=== PATIENT | female | born 1955 | race Caucasian/White ===

== ENCOUNTER 2016-10-07 15:58 | Outpatient (CLI) | payer OTHER ==
[2014-09-11 10:13] VITALS: BP 107/91
--- NOTE | 2016-10-07 20:33 | Diagnostic Imaging Report ---
MARIKA RUIZ~ [facility] [address] [facility].[address] [address] ~ ~ ~ ~ Report Submission Date: Oct 07, 2016 4:26:45 PM CDT Patient ~ Study Name: SIM VICENTE ~ Date: Oct 07, 2016 4:09:18 PM CDT ~ Modality Type: CR Gender: F ~ Description: CHEST : 55 ~ Institution: [facility] Physician: MARIKA RUIZ ~ ~ ~ ~ Chest, 2 view History: COUGH, WHEEZING, FEVER Findings: The heart size is enlarged. The lungs are clear but mildly hyperinflated. There is no pleural effusion or pneumothorax identified. The osseous structures are normal. Impression: 1. No acute pulmonary disease. 2. Mild cardiomegaly. 3. Lung hyperinflation. ~ Electronically signed on Oct 07, 2016 4:26:45 PM CDT by: Andry GARCIA
== END 2016-10-07 16:00 ==
LOC: RAD 15:58
PROVIDERS: ATTEND Physician Assistant
DX: R05 Cough (principal); R06.02 Shortness of breath
CPT/HCPCS: 71020

== ENCOUNTER 2017-01-05 14:59 | Outpatient (CLI) | payer OTHER ==
[2014-09-11 10:13] VITALS: BP 107/91
[2017-01-05 15:31] LABS: BASOPHILS % 0.7 (0.0-1.5); EOSINOPHILS % 1.6 % (0.0-6.8); MEAN CORPUSCULAR HEMOGLOBIN 29.3 pg (28.0-34.0); MEAN CORPUSCULAR VOLUME 87.3 fl (80.0-100.0); MONOCYTES % 4.9 % (0.0-11.0); NEUTROPHILS # 8.1 # k/uL (1.4-7.7)
[2017-01-05 15:47] LABS: eGFR (African) > 60; eGFR (Non-African) > 60
== END 2017-01-05 15:00 ==
LOC: RT 14:59
PROVIDERS: ATTEND Family Medicine
DX: I49.9 Cardiac arrhythmia, unspecified (principal); R73.9 Hyperglycemia, unspecified
CPT/HCPCS: 36415; 80053; 83036; 84443; 85025

== ENCOUNTER 2017-01-18 14:03 | Outpatient (CLI) | payer OTHER ==
[2014-09-11 10:13] VITALS: BP 107/91
== END 2017-01-18 14:04 ==
LOC: CARD 14:03
PROVIDERS: ATTEND Internal Medicine Cardiovascular Disease
DX: I48.91 Unspecified atrial fibrillation (principal); I10 Essential (primary) hypertension; E11.9 Type 2 diabetes mellitus without complications; E66.9 Obesity, unspecified; G47.30 Sleep apnea, unspecified
CPT/HCPCS: G0463

== ENCOUNTER 2017-03-12 08:05 | Outpatient (CLI) | payer OTHER ==
[2014-09-11 10:13] VITALS: BP 107/91
== END 2017-03-12 11:03 ==
LOC: LAB 08:05
PROVIDERS: ATTEND Family Medicine
DX: Z51.81 Encounter for therapeutic drug level monitoring (principal)
CPT/HCPCS: 36415; 85610

== ENCOUNTER 2017-03-16 08:35 | Outpatient (CLI) | payer OTHER ==
[2014-09-11 10:13] VITALS: BP 107/91
== END 2017-03-16 08:36 ==
LOC: LAB 08:35
PROVIDERS: ATTEND Family Medicine
DX: I48.91 Unspecified atrial fibrillation (principal); Z79.01 Long term (current) use of anticoagulants
CPT/HCPCS: 36415; 85610

== ENCOUNTER 2017-03-21 08:13 | Outpatient (CLI) | payer OTHER ==
[2014-09-11 10:13] VITALS: BP 107/91
== END 2017-03-21 08:14 ==
LOC: LAB 08:13
PROVIDERS: ATTEND Family Medicine
DX: I48.91 Unspecified atrial fibrillation (principal); Z79.01 Long term (current) use of anticoagulants
CPT/HCPCS: 36415; 85610

== ENCOUNTER 2017-04-04 10:26 | Outpatient (CLI) | payer OTHER ==
[2014-09-11 10:13] VITALS: BP 107/91
== END 2017-04-04 10:27 ==
LOC: LAB 10:26
PROVIDERS: ATTEND Family Medicine
DX: I48.91 Unspecified atrial fibrillation (principal); Z79.01 Long term (current) use of anticoagulants
CPT/HCPCS: 36415; 85610

== ENCOUNTER 2017-04-11 07:50 | Outpatient (CLI) | payer OTHER ==
[2014-09-11 10:13] VITALS: BP 107/91
== END 2017-04-11 07:52 ==
LOC: LAB 07:50
PROVIDERS: ATTEND Family Medicine
DX: I48.91 Unspecified atrial fibrillation (principal); Z79.01 Long term (current) use of anticoagulants
CPT/HCPCS: 36415; 85610

== ENCOUNTER 2017-04-18 11:46 | Outpatient (CLI) | payer OTHER ==
[2014-09-11 10:13] VITALS: BP 107/91
== END 2017-04-18 11:47 ==
LOC: LAB 11:46
PROVIDERS: ATTEND Family Medicine
DX: I48.91 Unspecified atrial fibrillation (principal); Z79.01 Long term (current) use of anticoagulants
CPT/HCPCS: 36415; 85610

== ENCOUNTER 2017-05-18 08:51 | Outpatient (CLI) | payer OTHER ==
[2014-09-11 10:13] VITALS: BP 107/91
== END 2017-05-18 08:52 ==
LOC: LAB 08:51
PROVIDERS: ATTEND Family Medicine
DX: Z51.81 Encounter for therapeutic drug level monitoring (principal); I48.91 Unspecified atrial fibrillation
CPT/HCPCS: 36415; 85610

== ENCOUNTER 2017-06-20 08:32 | Outpatient (CLI) | payer OTHER ==
[2014-09-11 10:13] VITALS: BP 107/91
== END 2017-06-20 08:33 ==
LOC: LAB 08:32
PROVIDERS: ATTEND Family Medicine
DX: I48.91 Unspecified atrial fibrillation (principal)
CPT/HCPCS: 36415; 85610

== ENCOUNTER 2017-06-29 09:06 | Outpatient (CLI) | payer OTHER ==
[2014-09-11 10:13] VITALS: BP 107/91
== END 2017-06-29 09:07 ==
LOC: LAB 09:06
PROVIDERS: ATTEND Family Medicine
DX: I48.91 Unspecified atrial fibrillation (principal); Z51.81 Encounter for therapeutic drug level monitoring
CPT/HCPCS: 36415; 85610

== ENCOUNTER 2017-07-13 08:07 | Outpatient (CLI) | payer OTHER ==
[2014-09-11 10:13] VITALS: BP 107/91
== END 2017-07-13 08:10 ==
LOC: LAB 08:07
PROVIDERS: ATTEND Family Medicine
DX: I48.91 Unspecified atrial fibrillation (principal); Z51.81 Encounter for therapeutic drug level monitoring
CPT/HCPCS: 36415; 85610

== ENCOUNTER 2017-08-12 08:15 | Outpatient (CLI) | payer MEDICARE ==
[2014-09-11 10:13] VITALS: BP 107/91
== END 2017-08-12 08:16 ==
LOC: LAB 08:15
PROVIDERS: ATTEND Family Medicine
DX: I48.91 Unspecified atrial fibrillation (principal); Z51.81 Encounter for therapeutic drug level monitoring
CPT/HCPCS: 36415; 85610

== ENCOUNTER 2017-08-19 08:28 | Outpatient (CLI) | payer MEDICARE ==
[2014-09-11 10:13] VITALS: BP 107/91
== END 2017-08-19 08:30 ==
LOC: LAB 08:28
PROVIDERS: ATTEND Family Medicine
DX: I48.91 Unspecified atrial fibrillation (principal); Z51.81 Encounter for therapeutic drug level monitoring
CPT/HCPCS: 36415; 85610

== ENCOUNTER 2017-09-02 09:32 | Outpatient (CLI) | payer MEDICARE ==
[2014-09-11 10:13] VITALS: BP 107/91
== END 2017-09-02 09:33 ==
LOC: LAB 09:32
PROVIDERS: ATTEND Family Medicine
DX: I48.91 Unspecified atrial fibrillation (principal); Z51.81 Encounter for therapeutic drug level monitoring
CPT/HCPCS: 36415; 85610

== ENCOUNTER 2017-09-05 10:48 | Outpatient (CLI) | payer MEDICARE ==
[2014-09-11 10:13] VITALS: BP 107/91
--- NOTE | 2017-09-05 11:24 | Diagnostic Imaging Report ---
[facility] [address] [facility] [address] [address] Report Submission Date: Sep 05, 2017 11:20:18 AM HISTOLOGIST Patient Study Name: SIM VICENTE Date: Sep 05, 2017 10:59:39 AM HISTOLOGIST Modality Type: CR Gender: F Description: CHEST : 55 Institution: [facility] Physician: BRANDON MAJANO Examination: PA and lateral chest. History: PATIENT STATES COUGHING AND WHEEZING FOR THREE WEEKS. HISTORY OF ASTHMA. NON-SMOKER. (Hx) / COUGH (DICOM Hx) / COUGH (Pt comments) Comparison exam: 07 October 2016 Findings: PA lateral chest demonstrate a prominent cardiac and mediastinal silhouette: stable. Chronic interstitial changes. No focal infiltrate. No blunting of the costophrenic margins. Osseous structures are appropriate for age. Impression: Stable chronic interstitial changes and mild cardiomegaly. No acute appearing pulmonary process. Electronically signed on Sep 05, 2017 11:20:18 AM HISTOLOGIST by: Kennedy GARCIA
--- NOTE | 2017-09-05 11:44 | Diagnostic Imaging Report ---
[facility] [address] [facility] [address] [place], [place]. [address] Report Submission Date: Sep 05, 2017 11:32:44 AM ARC FURNACE OPERATOR Patient Study Name: SIM VICENTE Date: Sep 05, 2017 11:04:58 AM ARC FURNACE OPERATOR Modality Type: CT\SR Gender: F Description: CT MAXILLOFACIAL W/O D : 55 Institution: [facility] Physician: BRANDON MAJANO Examination: CT maxillofacial History: PATIENT STATES COUGH, WHEEZE AND NASAL DRAINAGE FOR THREE WEEKS. STATES NASAL DISCHARGE IS BLOODY AT TIMES. NO SURGICAL HISTORY. NON-SMOKER. (Hx ) / JULES NASAL D/C (DICOM Hx) Comparison exams: None provided Technique: Axial imaging with sagittal and coronal reconstruction Findings: Medial and inferior orbital steve are intact. Anterior and posterior maxillary steve are also intact. Zygomatic arches without fracture. No nasal bone abnormality. Mandibles including the mandibular condyle are without irregularity. Significant payne sinus mucus thickening/opacification. Most significant mucous thickening involves the maxillary sinuses bilaterally associated with air-fluid levels. Remaining visualized osseous structures and soft tissue structures are without irregularity. Streak artifact from dental hardware. Impression: Payne sinus mucus thickening - most significantly involving the maxillary sinuses bilaterally associated with air-fluid levels. No orbital, nasal, mandibular or maxillary bone fractures/abnormalities. Electronically signed on Sep 05, 2017 11:32:44 AM ARC FURNACE OPERATOR by: Kennedy GARCIA
[2017-09-05 16:25] LABS: ADENOVIRUS DNA NEGATIVE (NEGATIVE); BORDETELLA PERTUSSIS DNA NEGATIVE (NEGATIVE); SOURCE: SAWB IN VTM
== END 2017-09-05 10:50 ==
LOC: RAD 10:48
PROVIDERS: ATTEND Family Medicine
DX: R05 Cough (principal); J32.9 Chronic sinusitis, unspecified
CPT/HCPCS: 70486; 71020; 87486; 87581; 87633; 87798

== ENCOUNTER 2017-09-08 09:05 | Outpatient (CLI) | payer MEDICARE ==
[2014-09-11 10:13] VITALS: BP 107/91
== END 2017-09-08 09:06 ==
LOC: LAB 09:05
PROVIDERS: ATTEND Family Medicine
DX: I48.91 Unspecified atrial fibrillation (principal); Z51.81 Encounter for therapeutic drug level monitoring
CPT/HCPCS: 36415; 85610

== ENCOUNTER 2017-09-13 09:50 | Outpatient (CLI) | payer MEDICARE ==
[2014-09-11 10:13] VITALS: BP 107/91
[2017-09-13] MEDS ORDERED: ALBUTEROL SULFATE 2.5 MG/3 ML AMPUL.NEB NEB ONE (10:10)
== END 2017-09-13 09:52 ==
LOC: RT 09:50
PROVIDERS: ATTEND Family Medicine
DX: R06.2 Wheezing (principal)
CPT/HCPCS: 94060

== ENCOUNTER 2017-09-16 08:31 | Outpatient (CLI) | payer MEDICARE ==
[2014-09-11 10:13] VITALS: BP 107/91
== END 2017-09-16 08:32 ==
LOC: LAB 08:31
PROVIDERS: ATTEND Family Medicine
DX: Z51.81 Encounter for therapeutic drug level monitoring (principal); I48.91 Unspecified atrial fibrillation
CPT/HCPCS: 36415; 85610

== ENCOUNTER 2017-10-03 08:55 | Outpatient (CLI) | payer MEDICARE ==
[2014-09-11 10:13] VITALS: BP 107/91
== END 2017-10-03 10:00 ==
LOC: LAB 08:55
PROVIDERS: ATTEND Family Medicine
DX: I48.91 Unspecified atrial fibrillation (principal); Z51.81 Encounter for therapeutic drug level monitoring
CPT/HCPCS: 36415; 85610

== ENCOUNTER 2017-11-03 08:24 | Outpatient (CLI) | payer MEDICARE ==
[2014-09-11 10:13] VITALS: BP 107/91
== END 2017-11-03 08:25 ==
LOC: LAB 08:24
PROVIDERS: ATTEND Family Medicine
DX: I48.91 Unspecified atrial fibrillation (principal); Z79.899 Other long term (current) drug therapy
CPT/HCPCS: 36415; 85610

== ENCOUNTER 2017-11-04 | Outpatient (CLI) | payer MEDICARE ==
--- NOTE | 2017-11-14 15:52 | CONSULTATION REPORT ---
PRIMARY CARE PROVIDER: Dr. Madina Mckeon CONSULTING PHYSICIAN: Alison Lebron MD CHIEF COMPLAINT: "I have had problems with my breathing and would like to see a manager of digital." SIGNIFICANT PROBLEM LIST: 1. Asthma. 2. Atrial fibrillation diagnosed in December 2016 and on Coumadin. 3. Diabetes. 4. Hypertension. 5. Obstructive sleep apnea diagnosed at [facility] in March 2012 : Patient refuses to use a CPAP. 6. Hyperlipidemia. 7. Gastroesophageal reflux disease (GERD). 8. Chronic sinusitis. 9. Morbid obesity. BMI of 49.1. 10. ONE KIDNEY. HISTORY OF PRESENT ILLNESS: This is a 62-year-old female who is here with her . She states that on August 25, 2017, she felt achy with fever and cough and shortness of breath. She saw Dr. Mckeon and was noted to be wheezing and her Dulera inhaler dose was increased to 200/5 and she was placed on a prednisone taper. On August, she was still symptomatic. She was given another prednisone taper and placed on Cefdinir. She states at present that her breathing is good. She uses her inhalers as instructed. She does not have BiPAP or CPAP. There is no home oxygen and she does have a home nebulizer that she uses p.r.n. This is albuterol via the nebulizer. The patient has been diagnosed with sleep apnea from [facility] in March 2012. Patient states she tried to use a CPAP and has tried different masks but is unable to use the CPAP and has no desire to try to use it again. She also notes that she has chronic sinus issues and has significant environmental allergies. She has received allergy shots in the past and is followed by Dr. Strong, an manager cosmetic. Patient has never used tobacco. She states she gets occasional chest pain. There is no PND. She does have edema. Her weight has been stable. Her appetite is good. Her energy level is reasonable. She denies a cough. There is no hemoptysis. She has been on prednisone and antibiotics for her breathing in the past. She does have GERD and also a postnasal drip. She denies fever, chills, or sweats. She has had pneumonia in the past and no history of DVTs. She thinks she might have had asthma as a child. REVIEW OF SYSTEMS: Please see HPI for pertinent review of systems. Also see [facility] patient intake record. MEDICATIONS: 1. Dulera 200/5 mcg 2 puffs b.i.d. 2. Albuterol via nebulizer p.r.n. shortness of breath. 3. Diltiazem 120 mg daily. 4. Ranitidine 300 mg b.i.d. 5. Metformin 500 mg b.i.d. 6. Gabapentin 300 mg in the a.m. and at noon and 600 mg at bedtime. 7. Triamterene/hydrochlorothiazide 75/50 mg one-half tablet daily. 8. Metoprolol 25 mg b.i.d. 9. Fluticasone nasal spray 50 mcg 2 sprays each nostril daily. 10. Vitamin D3, 1000 units daily. 11. Airborne Immune Support 1 tablet daily. 12. Argentyn 23 Swab each nostril daily. 13. Zyrtec 10 mg b.i.d. 14. Carbinoxamine 4 mg daily. 15. Warfarin 7.5 mg tablet, two tablets on Tuesday's and Tuesday's and 1-1/2 tablets on the other days. ALLERGIES: 1. Levofloxacin. 2. Penicillin. 3. Theophylline. SOCIAL HISTORY: Patient is and lives with her . She has never used tobacco and does not drink alcohol. FAMILY HISTORY: 1. Rheumatoid disease. 2. Heart disease. 3. Cancer. 4. Lung disease. PHYSICAL EXAMINATION: VITAL SIGNS: BP: 120/72, P: 68, T: 96.6. Room air oxygen saturation was 96% . Height: 5 feet 6 inches. Weight: 304 pounds. BMI of 49.1. Morbid obesity. General: This is a well-developed obese female in no acute distress speaking in full sentences. HEENT: Pupils are equal and reactive to light. Oropharynx is clear. No thrush. No erythema. NECK: Supple. No adenopathy. No JVD. LUNGS: Good bilateral air excursion. Clear to auscultation. No wheezing. No crackles or rhonchi. No tactile fremitus. CARDIAC: Irregularly irregular rhythm. S1, S2, no S3 or S4 or gallops. ABDOMEN: Obese. Soft and nontender. Difficult to assess for organomegaly. EXTREMITIES: No cyanosis or clubbing. Chronic venous stasis changes in bilateral lower extremities, 1+ edema. NEUROLOGIC: Alert and oriented x3. Grossly nonfocal exam. IMAGING: All imaging independently reviewed by me personally. 1. Sinus CT scan on September 05, 2017. Pansinusitis. Robison sinuses with air fluid level. (Please note, I am unable to visualize this radiology report due to equipment problems). 2. Chest x-ray on September 05, 2017. Cephalization, cardiomegaly, increased markings at the bases. 3. Pulmonary function testing on September 13, 2017. FVC was 1.85 liters, 58 % of predicted, FEV1 was 1.51 liters, 59% of predicted, FEV1/FVC was 0.82. This is compatible with restriction. Would require a full PFT including a Body Box to make that diagnosis. LABORATORIES: Respiratory viral panel on September 05, 2017. Negative. ASSESSMENT AND PLAN: PROBLEM #1: Asthma. At present, patient is stable. Denies any shortness of breath. No wheezing on exam. PLAN: 1. Continue Dulera at 200/5 mcg 2 inhalations b.i.d. 2. Continue albuterol nebulizer p.r.n. shortness of breath. 3. Prescription for albuterol MDI 2 puffs every 3 hours p.r.n. shortness of breath to use as a rescue inhaler. PROBLEM #2: Obstructive sleep apnea. Patient and I discussed the importance of using a CPAP and how that can improve her health and overall feeling of well being. She, at present, is absolutely adamant that she will not use a CPAP. PLAN: Discuss issue of sleep apnea again on next visit. PROBLEM #3: Chronic sinusitis. At present, this also seems stable. PLAN: 1. Continue the current allergy medications. 2. Return to clinic in 3 months. cc: Dr. Madina GARCIA
== END 2017-11-04 13:20 ==
CPT/HCPCS: 99214; G0463

== ENCOUNTER 2017-11-10 09:05 | Outpatient (CLI) | payer MEDICARE ==
[2014-09-11 10:13] VITALS: BP 107/91
== END 2017-11-10 09:10 ==
LOC: LAB 09:05
PROVIDERS: ATTEND Family Medicine
DX: I48.91 Unspecified atrial fibrillation (principal); Z51.81 Encounter for therapeutic drug level monitoring
CPT/HCPCS: 36415; 85610

== ENCOUNTER 2017-11-17 08:39 | Outpatient (CLI) | payer MEDICARE ==
[2014-09-11 10:13] VITALS: BP 107/91
== END 2017-11-17 08:40 ==
LOC: LAB 08:39
PROVIDERS: ATTEND Family Medicine
DX: Z51.81 Encounter for therapeutic drug level monitoring (principal); I48.91 Unspecified atrial fibrillation
CPT/HCPCS: 36415; 85610

== ENCOUNTER 2017-12-01 09:37 | Outpatient (CLI) | payer MEDICARE ==
[2014-09-11 10:13] VITALS: BP 107/91
== END 2017-12-01 09:40 ==
LOC: LAB 09:37
PROVIDERS: ATTEND Family Medicine
DX: Z51.81 Encounter for therapeutic drug level monitoring (principal); I48.91 Unspecified atrial fibrillation
CPT/HCPCS: 36415; 85610

== ENCOUNTER 2017-12-29 08:55 | Outpatient (CLI) | payer MEDICARE ==
[2014-09-11 10:13] VITALS: BP 107/91
== END 2017-12-29 08:56 ==
LOC: LAB 08:55
PROVIDERS: ATTEND Family Medicine
DX: Z51.81 Encounter for therapeutic drug level monitoring (principal); I48.91 Unspecified atrial fibrillation
CPT/HCPCS: 36415; 85610

== ENCOUNTER 2018-01-17 12:58 | Outpatient (CLI) | payer MEDICARE ==
[2014-09-11 10:13] VITALS: BP 107/91
== END 2018-01-17 13:00 ==
LOC: CARD 12:58
PROVIDERS: ATTEND Internal Medicine Cardiovascular Disease
DX: I48.91 Unspecified atrial fibrillation (principal); I10 Essential (primary) hypertension; E11.9 Type 2 diabetes mellitus without complications; E78.5 Hyperlipidemia, unspecified; E66.9 Obesity, unspecified; G47.30 Sleep apnea, unspecified
CPT/HCPCS: G0463

== ENCOUNTER 2018-02-03 11:22 | Outpatient (CLI) | payer MEDICARE ==
[2014-09-11 10:13] VITALS: BP 107/91
--- NOTE | 2018-02-13 16:43 | OP Clinic Progress Note ---
PRIMARY CARE PROVIDER: Dr. Madina Mckeon CHIEF COMPLAINT: "I am here for follow up and breathing okay." SIGNIFICANT PROBLEM LIST: 1. Asthma. 2. Atrial fibrillation diagnosed in December 2016, on Coumadin. 3. Diabetes. 4. Hypertension. 5. Obstructive sleep apnea: Diagnosed at [facility] in March 2012. Patient refuses to use CPAP. 6. Hyperlipidemia. 7. Gastroesophageal reflux disease. 8. Chronic sinusitis. 9. Morbid obesity. BMI of 49.1. 10. ONE KIDNEY. HISTORY OF PRESENT ILLNESS: This is a 62-year-old female that returns with her for follow up in the Pulmonary Clinic. She states that her breathing is good. She continues to use her Dulera and albuterol via the nebulizer and has had no recent difficulties in breathing. She walks in [employer]. She states that she has lost 4 pounds since she was seen here. She has not needed her rescue inhalers at all. She has been seen by Cardiology recently and they have offered her cardioversion , which she states she declined. MEDICATIONS: 1. Dulera (mometasone 200 mcg, formoterol 5 mcg) 200/5 mcg 2 puffs b.i.d. This is the max dose. 2. Albuterol via nebulizer p.r.n. shortness of breath. 3. Diltiazem 120 mg daily. 4. Ranitidine 300 mg b.i.d. 5. Metformin 500 mg b.i.d. 6. Gabapentin 300 mg in the a.m. and at noon, 600 mg at bedtime. 7. Triamterene/hydrochlorothiazide 75/50 mg half tablet daily. 8. Metoprolol 25 mg b.i.d. 9. Fluticasone nasal spray 50 mcg 2 sprays each nostril daily. 10. Vitamin D 1000 units daily. 11. Airborne immune support 1 tablet daily. 12. Argentyn 23 swab each nostril daily. 13. Zyrtec 10 mg b.i.d. 14. Carbinoxamine 4 mg daily (first generation antihistamine). 15. Warfarin 7.5 mg tablets 2 tablets on Tuesday's and Tuesday's and then 1-1/2 tablets on the other days. 16. Albuterol MDI 2 puffs p.r.n. every 3 hours shortness of breath. 17. Tylenol 500 mg p.r.n. ALLERGIES: 1. Levofloxacin. 2. Penicillin. 3. Theophylline. PHYSICAL EXAMINATION: VITAL SIGNS: BP: 124/79, P: 71, R: 20, T: 96.7, room air oxygen saturation is 95%. Weight: 300 pounds (decrease of 4 pounds since last visit). GENERAL: This is a well-developed morbidly obese female in no acute distress speaking in full sentences. HEENT: Pupils are equal and reactive to light. Oropharynx is clear. No thrush or erythema. NECK: Supple. No adenopathy. LUNGS: Clear. Good bilateral air excursion. No wheezes or rhonchi. CARDIAC: Irregularly irregular. No murmur, rubs, or gallops. ABDOMEN: Obese. Nontender. EXTREMITIES: No edema, cyanosis, or clubbing. NEUROLOGIC: Alert and oriented x3. Grossly nonfocal. IMAGING: All imaging independently reviewed by me personally. Pulmonary function testing on September 13, 2017. FVC was 1.85 liters, 58% of predicted; FEV1 was 1.51 liters, 59% of predicted; FEV1/FVC was 0.82. Interpretation: This is compatible with restriction. Would require a full PFT including a body box to make that diagnosis. ASSESSMENT AND PLAN: PROBLEM #1: Asthma. At present, patient is stable. Denies any shortness of breath. No wheezing on exam. PLAN: 1. Continue Dulera 200/5 mcg 2 inhalations b.i.d. 2. Continue albuterol nebulizer p.r.n. shortness of breath. 3. Continue albuterol MDI 2 puffs every 3 hours p.r.n. shortness of breath. PROBLEM #2: Obstructive sleep apnea. PLAN: We have discussed this again and the patient continues to totally refuse the use of CPAP. PROBLEM #3: Chronic sinusitis. This also is under control at present. PLAN: 1. Continue current allergy medications. 2. Return to clinic in 3 months. cc: Dr. Madina GARCIA
== END 2018-02-03 11:27 ==
LOC: PULMONARY 11:22
PROVIDERS: ATTEND Internal Medicine Pulmonary Disease
DX: J45.909 Unspecified asthma, uncomplicated (principal); G47.33 Obstructive sleep apnea (adult) (pediatric); J32.9 Chronic sinusitis, unspecified
CPT/HCPCS: 99214; G0463

== ENCOUNTER 2018-02-06 08:47 | Outpatient (CLI) | payer MEDICARE ==
[2014-09-11 10:13] VITALS: BP 107/91
== END 2018-02-06 10:44 ==
LOC: LAB 08:47
PROVIDERS: ATTEND Family Medicine
DX: I48.91 Unspecified atrial fibrillation (principal); Z51.81 Encounter for therapeutic drug level monitoring
CPT/HCPCS: 36415; 85610

== ENCOUNTER 2018-03-09 08:00 | Outpatient (CLI) | payer MEDICARE ==
[2014-09-11 10:13] VITALS: BP 107/91
== END 2018-03-09 08:02 ==
LOC: LAB 08:00
PROVIDERS: ATTEND Family Medicine
DX: I48.91 Unspecified atrial fibrillation (principal); Z51.81 Encounter for therapeutic drug level monitoring
CPT/HCPCS: 36415; 85610

== ENCOUNTER 2018-04-06 09:04 | Outpatient (CLI) | payer MEDICARE ==
[2014-09-11 10:13] VITALS: BP 107/91
[2018-04-06 09:50] LABS: eGFR (Non-African) > 60
== END 2018-04-06 09:06 ==
LOC: LAB 09:04
PROVIDERS: ATTEND Family Medicine
DX: Z51.81 Encounter for therapeutic drug level monitoring (principal); I48.91 Unspecified atrial fibrillation; E11.9 Type 2 diabetes mellitus without complications; E03.9 Hypothyroidism, unspecified
CPT/HCPCS: 36415; 80053; 80061; 83036; 84443; 85610

== ENCOUNTER 2018-04-20 09:04 | Outpatient (CLI) | payer MEDICARE ==
[2014-09-11 10:13] VITALS: BP 107/91
== END 2018-04-20 09:06 ==
LOC: LAB 09:04
PROVIDERS: ATTEND Family Medicine
DX: I48.91 Unspecified atrial fibrillation (principal); Z51.81 Encounter for therapeutic drug level monitoring
CPT/HCPCS: 36415; 85610

== ENCOUNTER 2018-05-05 11:54 | Outpatient (CLI) | payer MEDICARE ==
[2014-09-11 10:13] VITALS: BP 107/91
--- NOTE | 2018-05-05 20:22 | Diagnostic Imaging Report ---
KENDY SPEARS [facility] [address] [facility].[address] [address] Report Submission Date: May 05, 2018 4:50:19 PM CDT Patient Study Name: SIM VICENTE Date: May 05, 2018 2:33:00 PM CDT Modality Type: DX Gender: F Description: PELVIS : 55 Institution: [facility] Physician: KENDY SPEARS Bilateral hips History: Right hip pain AP and frog-leg lateral projections of the bilateral hips were obtained which demonstrate mild osteoarthritis of the right hip. No degenerative findings of the left hip are noted. Mineralization is maintained. No acute osseous abnormalities are noted. Impression: Unremarkable left hip. Mild osteoarthritis of the right hip. Electronically signed on May 05, 2018 4:50:19 PM CDT by: Catalina GARCIA
--- NOTE | 2018-05-16 09:34 | OP Clinic Progress Note ---
PRIMARY CARE PROVIDER: Dr. Madina Mckeon CHIEF COMPLAINT: "I am here for follow up for my breathing." SIGNIFICANT PROBLEM LIST: 1. Asthma. 2. Atrial fibrillation diagnosed in December 2016, on Coumadin. 3. Diabetes. 4. Hypertension. 5. Obstructive sleep apnea: Diagnosed at [facility] in March 2012. Patient refuses to use CPAP. 6. Hyperlipidemia. 7. Gastroesophageal reflux disease. 8. Chronic sinusitis. 9. Morbid obesity. BMI is 49.1. 10. ONE KIDNEY. HISTORY OF PRESENT ILLNESS: Patient returns to the Pulmonary Clinic with her and states that she is overall doing well from a pulmonary standpoint. She had a cough for only 1 day. She did complain of some sinus congestion but she thought this was due to the weather. She denies any fever, chills, or sweats. She uses her albuterol MDI approximately once per day. She did see her allergy physician and states that she now takes her Zyrtec 3 times a day and that has helped her. She also is complaining of substantial swelling of her lower extremities. She states this has been going on for approximately 2 weeks. There is associated pain and tingling. She has obtained a flu shot. ALLERGIES: 1. Levofloxacin. 2. Penicillin. 3. Theophylline. MEDICATIONS: 1. Dulera (mometasone 200 mcg, formoterol 5 mcg) 200/5 mcg 2 puffs b.i.d. This is the max dose. 2. Albuterol via nebulizer p.r.n. shortness of breath. 3. Diltiazem 120 mg daily. 4. Ranitidine 300 mg b.i.d. 5. Metformin 500 mg b.i.d. 6. Gabapentin 300 mg in the a.m. and at noon, 600 mg at bedtime. 7. Triamterene/hydrochlorothiazide 75/50 mg one-half tablet daily. 8. Metoprolol 25 mg b.i.d. 9. Fluticasone nasal spray 50 mcg 2 sprays each nostril daily. 10. Vitamin D 1000 units daily. 11. Airborne immune support 1 tablet daily. 12. Argentyn 23 swab each nostril daily. 13. Zyrtec 10 mg t.i.d. 14. Carbinoxamine 4 mg daily (first generation antihistamine). 15. Warfarin 7.5 mg tablets 2 tablets on Tuesday's and Tuesday's and then 1-1/2 tablets on the other days. 16. Albuterol MDI 2 puffs p.r.n. 17. Tylenol 500 mg p.r.n. PHYSICAL EXAMINATION: GENERAL: This is a well-developed obese female in no acute distress speaking in full sentences. VITAL SIGNS: BP: 128/90, P: 86, R: 22, T: 97.8. Oxygen saturation is 92% on room air. Weight: 305 pounds (this is an increase in 5 pounds since the last visit). HEENT: Pupils are equal and reactive to light. Oropharynx is clear. No thrush. No erythema. Neck: Supple, obese. LUNGS: Clear to auscultation bilaterally. CARDIAC: Rate and rhythm are irregular. No murmur, rubs, or gallops. ABDOMEN: Obese. Nontender. EXTREMITIES: Lower extremities have 2+ to 3+ edema with very taut skin. Tender to the touch with it increasing as you go up the legs. NEUROLOGIC: Alert and oriented. Grossly nonfocal. ASSESSMENT: PROBLEM #1: Asthma. Stable at present. Patient is stable. PLAN: 1. Continue Dulera 200/5 mcg 2 inhalations b.i.d. 2. Continue albuterol nebulizer p.r.n. shortness of breath. 3. Continue albuterol MDI 2 puffs p.r.n. shortness of breath. PROBLEM #2: Significant lower extremity edema associated with pain and tingling. PLAN: Refer to Dr. Anderson today for an evaluation of her bilateral swollen lower extremities. PROBLEM #3: Obstructive sleep apnea. PLAN: Patient refuses any therapy. PROBLEM #4: Chronic sinusitis. This is also under control at present. PLAN: 1. Continue current allergy medications. 2. Return to clinic in 3 months. cc: Dr. Madina GARCIA
== END 2018-05-05 11:56 ==
LOC: PULMONARY 11:54
PROVIDERS: ATTEND Internal Medicine Pulmonary Disease
DX: J45.909 Unspecified asthma, uncomplicated (principal); R60.0 Localized edema; G47.33 Obstructive sleep apnea (adult) (pediatric); J32.9 Chronic sinusitis, unspecified
CPT/HCPCS: 73521; 99214; G0463

== ENCOUNTER 2018-05-18 12:26 | Outpatient (CLI) | payer MEDICARE ==
[2014-09-11 10:13] VITALS: BP 107/91
== END 2018-05-18 15:31 ==
LOC: LAB 12:26
PROVIDERS: ATTEND Family Medicine
DX: Z51.81 Encounter for therapeutic drug level monitoring (principal); I48.91 Unspecified atrial fibrillation
CPT/HCPCS: 36415; 85610

== ENCOUNTER 2018-06-23 11:29 | Outpatient (CLI) | payer MEDICARE ==
[2014-09-11 10:13] VITALS: BP 107/91
== END 2018-06-23 11:30 ==
LOC: LAB 11:29
PROVIDERS: ATTEND Family Medicine
DX: I48.91 Unspecified atrial fibrillation (principal); Z51.81 Encounter for therapeutic drug level monitoring
CPT/HCPCS: 36415; 85610

== ENCOUNTER 2018-06-29 08:22 | Outpatient (CLI) | payer MEDICARE ==
[2014-09-11 10:13] VITALS: BP 107/91
== END 2018-06-29 08:23 ==
LOC: LAB 08:22
PROVIDERS: ATTEND Family Medicine
DX: I48.91 Unspecified atrial fibrillation (principal); Z51.81 Encounter for therapeutic drug level monitoring
CPT/HCPCS: 36415; 85610

== ENCOUNTER 2018-07-06 07:45 | Outpatient (CLI) | payer MEDICARE ==
[2014-09-11 10:13] VITALS: BP 107/91
== END 2018-07-06 14:14 ==
LOC: LAB 07:45
PROVIDERS: ATTEND Family Medicine
DX: I48.91 Unspecified atrial fibrillation (principal)
CPT/HCPCS: 36415; 85610

== ENCOUNTER 2018-08-03 07:48 | Outpatient (CLI) | payer MEDICARE ==
[2014-09-11 10:13] VITALS: BP 107/91
== END 2018-08-03 07:50 ==
LOC: LAB 07:48
PROVIDERS: ATTEND Family Medicine
DX: Z51.81 Encounter for therapeutic drug level monitoring (principal); Z79.01 Long term (current) use of anticoagulants; I48.91 Unspecified atrial fibrillation
CPT/HCPCS: 36415; 85610

== ENCOUNTER 2018-09-14 07:41 | Outpatient (CLI) | payer MEDICARE ==
[2014-09-11 10:13] VITALS: BP 107/91
== END 2018-09-14 07:43 ==
LOC: LAB 07:41
PROVIDERS: ATTEND Family Medicine
DX: I48.91 Unspecified atrial fibrillation (principal); Z51.81 Encounter for therapeutic drug level monitoring
CPT/HCPCS: 36415; 85610

== ENCOUNTER 2018-10-02 07:39 | Outpatient (CLI) | payer MEDICARE ==
[2014-09-11 10:13] VITALS: BP 107/91
== END 2018-10-02 07:42 ==
LOC: LAB 07:39
PROVIDERS: ATTEND Family Medicine
DX: Z51.81 Encounter for therapeutic drug level monitoring (principal); I48.91 Unspecified atrial fibrillation
CPT/HCPCS: 36415; 85610

== ENCOUNTER 2018-10-17 08:15 | Outpatient (CLI) | payer MEDICARE ==
[2014-09-11 10:13] VITALS: BP 107/91
== END 2018-10-17 08:17 ==
LOC: LAB 08:15
PROVIDERS: ATTEND Family Medicine
DX: I48.91 Unspecified atrial fibrillation (principal); Z51.81 Encounter for therapeutic drug level monitoring
CPT/HCPCS: 36415; 85610

== ENCOUNTER 2018-11-16 08:25 | Outpatient (CLI) | payer MEDICARE ==
[2014-09-11 10:13] VITALS: BP 107/91
== END 2018-11-16 08:27 ==
LOC: LAB 08:25
PROVIDERS: ATTEND Family Medicine
DX: I48.91 Unspecified atrial fibrillation (principal); Z51.81 Encounter for therapeutic drug level monitoring
CPT/HCPCS: 36415; 85610

== ENCOUNTER 2018-12-28 08:13 | Outpatient (CLI) | payer MEDICARE ==
[2014-09-11 10:13] VITALS: BP 107/91
== END 2018-12-28 08:18 | disposition home or self-care (01) ==
LOC: LAB 08:13
PROVIDERS: ATTEND Family Medicine
DX: I48.91 Unspecified atrial fibrillation (principal); Z51.81 Encounter for therapeutic drug level monitoring
CPT/HCPCS: 36415; 85610

== ENCOUNTER 2019-02-09 08:23 | Outpatient (CLI) | payer MEDICARE ==
[2014-09-11 10:13] VITALS: BP 107/91
== END 2019-02-09 08:25 ==
LOC: LAB 08:23
PROVIDERS: ATTEND Family Medicine
DX: Z79.01 Long term (current) use of anticoagulants (principal); Z51.81 Encounter for therapeutic drug level monitoring; I48.91 Unspecified atrial fibrillation
CPT/HCPCS: 36415; 85610

== ENCOUNTER 2019-03-12 10:30 | Outpatient (CLI) | payer MEDICARE ==
[2014-09-11 10:13] VITALS: BP 107/91
== END 2019-03-12 10:33 ==
LOC: LAB 10:30
PROVIDERS: ATTEND Family Medicine
DX: I48.91 Unspecified atrial fibrillation (principal)
CPT/HCPCS: 36415; 85610

== ENCOUNTER 2019-03-20 09:44 | Outpatient (CLI) | payer MEDICARE ==
[2014-09-11 10:13] VITALS: BP 107/91
== END 2019-03-20 09:46 ==
LOC: LAB 09:44
PROVIDERS: ATTEND Family Medicine
DX: I48.91 Unspecified atrial fibrillation (principal)
CPT/HCPCS: 36415; 85610

== ENCOUNTER 2019-04-09 08:48 | Outpatient (CLI) | payer MEDICARE ==
[2014-09-11 10:13] VITALS: BP 107/91
[2019-04-09 09:43] LABS: A1C 5.3 % (<5.7)
[2019-04-09 10:18] LABS: HDL 42 mg/dL (>40); eGFR (Non-African) > 60
== END 2019-04-09 08:50 ==
LOC: LAB 08:48
PROVIDERS: ATTEND Family Medicine
DX: E11.9 Type 2 diabetes mellitus without complications (principal); E03.9 Hypothyroidism, unspecified
CPT/HCPCS: 36415; 80053; 80061; 83036; 84443; 85610

== ENCOUNTER 2019-05-11 10:06 | Outpatient (CLI) | payer MEDICARE ==
[2014-09-11 10:13] VITALS: BP 107/91
== END 2019-05-11 10:11 ==
LOC: LAB 10:06
PROVIDERS: ATTEND Family Medicine
DX: I48.91 Unspecified atrial fibrillation (principal); Z79.01 Long term (current) use of anticoagulants
CPT/HCPCS: 36415; 85610

== ENCOUNTER 2019-06-07 08:43 | Outpatient (CLI) | payer MEDICARE ==
[2014-09-11 10:13] VITALS: BP 107/91
== END 2019-06-07 08:48 ==
LOC: LAB 08:43
PROVIDERS: ATTEND Family Medicine
DX: Z51.81 Encounter for therapeutic drug level monitoring (principal); Z79.899 Other long term (current) drug therapy
CPT/HCPCS: 36415; 85610

== ENCOUNTER 2019-07-06 08:27 | Outpatient (CLI) | payer MEDICARE ==
[2014-09-11 10:13] VITALS: BP 107/91
== END 2019-07-06 08:32 ==
LOC: LAB 08:27
PROVIDERS: ATTEND Family Medicine
DX: I48.91 Unspecified atrial fibrillation (principal); Z79.899 Other long term (current) drug therapy
CPT/HCPCS: 36415; 85610